=== PATIENT | female | born 1985 | race Two or more races ===

== ENCOUNTER → 2016-09-18 | Outpatient (REF) | payer BC | LOC: M LAB REF 13:30 | DX: D22.9 Melanocytic nevi, unspecified (principal) ==

== ENCOUNTER → 2018-03-19 | Outpatient (REF) | payer BC | LOC: M SFHCLERA 15:10 | DX: J02.9 Acute pharyngitis, unspecified (principal) ==

== ENCOUNTER 2023-10-16 06:10 | Day surgery (SDC) | payer BC ==
[~2023-10-16] VITALS: Ht 170.2 cm; Wt 80.7 kg
[~2023-10-16 06:10] MED LIST: LEXA1TAB PO; THERTAB52 PO; VITA-243 PO; VITA100093 PO
[2023-10-16 06:50] LABS: HEMATOCRIT 43.3 % (36.0-47.0); HEMOGLOBIN 14.3 g/dl (12.0-15.5); MEAN CORPUSCULAR VOLUME 90.8 fl (80.0-96.0); PLATELET COUNT, AUTOMATED 259 10^3/uL (150-450); RED BLOOD COUNT 4.77 10^6/uL (4.00-5.40); WHITE BLOOD COUNT 6.2 10^3/uL (4.0-10.0)
[2023-10-16] MEDS ORDERED: LR 1,000 ML IV SCH ×3 (07:05→10:10)
[2023-10-16] MEDS ORDERED: LIDOCAINE 2% 100MG/5ML SDV (FOR ANES.) As Ordered ONE (07:16)
[2023-10-16] MEDS ORDERED: fentaNYL 100 MCG/2 ML INJECTION As Ordered ONE (07:16)
[2023-10-16] MEDS ORDERED: ROCURONIUM BROMIDE 50MG/5ML VIAL As Ordered ONE (07:16)
[2023-10-16] MEDS ORDERED: propofoL 200 MG/20 ML VIAL As Ordered ONE (07:16)
[2023-10-16] MEDS ORDERED: MIDAZOLAM INJ 2MG/2ML VIAL As Ordered ONE (07:16)
[2023-10-16] MEDS ORDERED: ONDANSETRON 4MG 2ML VIAL As Ordered ONE (07:16)
[2023-10-16 07:17] LABS: BLOOD UREA NITROGEN 9 MG/DL (9-23); CALCIUM LEVEL 9.1 MG/DL (8.5-10.1); CARBON DIOXIDE LEVEL 27 MMOL/L (20-31); CHLORIDE LEVEL 105 MMOL/L (98-107); CREATININE FOR GFR 0.76 MG/DL (0.55-1.30); GLOMERULAR FILTRATION RATE > 60.0 (>60); GLUCOSE, FASTING 104 MG/DL (60-100); SODIUM LEVEL 137 MMOL/L (136-145)
[2023-10-16] MEDS ORDERED: dexmedeTOMIDine (4MCG/ML)200MCG/50ML BTL (PRECEDEX) As Ordered ONE (07:17)
[2023-10-16] MEDS ORDERED: ACETAMINOPHEN 1000MG 100ML IV BAG As Ordered ONE (07:21)
[2023-10-16] MEDS: SCOPOLAMINE 1MG TRANSDERMAL PATCH TOP ONE (07:34)
[2023-10-16] MEDS: ceFAZolin SOD 2 GM in IV 1 EA IV ONE (07:35)
[2023-10-16] MEDS ORDERED: fentaNYL 100 MCG/2 ML INJECTION IV PRN ×2 (08:00)
[2023-10-16] MEDS ORDERED: ONDANSETRON 4MG 2ML VIAL IV PRN (08:00)
[2023-10-16] MEDS ORDERED: HYDROMORPHONE HCL 0.5 MG/ 0.5 ML SYRINGE IV PRN ×2 (08:00)
[2023-10-16] MEDS ORDERED: oxyCODONE 5MG TAB PO PRN (08:00)
[2023-10-16] MEDS ORDERED: KETOROLAC 60MG 2ML VIAL As Ordered ONE (08:03)
[2023-10-16] MEDS ORDERED: SUGAMMADEX SODIUM 500 MG/5 ML VIAL (BRIDION) As Ordered ONE (08:03)
[2023-10-16] MEDS ORDERED: GLYCOPYRROLATE INJ 0.2 MG/ML 2 ML VIAL As Ordered ONE (08:22)
[2023-10-16] MEDS: FLUORESCEIN 10% (100MG/ML) 5ML VIAL As Ordered ONE (08:30)
[2023-10-16] MEDS ORDERED: HYDROmorphone HCL 2MG/ML 1ML VIAL As Ordered ONE (08:42)
[2023-10-16] MEDS ORDERED: PERC5TAB12 PO (09:36)
[2023-10-16] MEDS ORDERED: METOCLOPRAMIDE INJ 10MG/2ML VIAL IV PRN (09:40)
[2023-10-16] MEDS ORDERED: PERCOCET 5MG/325MG TAB PO PRN (10:10)
[2023-10-16] MEDS: ONDANSETRON 4MG 2ML VIAL IV PRN (12:04)
[2023-10-16 12:55] VITALS: BP 135/70; TEMP 96.9; O2SAT 99
[2023-10-16] MEDS ORDERED: IBUPROFEN 800 MG TAB PO SCH (17:00)
== END 2023-10-16 13:15 | disposition home or self-care (01) ==
LOC: M SDC 06:10
PROVIDERS: ATTEND Obstetrics & Gynecology
DX: N93.9 Abnormal uterine and vaginal bleeding, unspecified (principal); D25.1 Intramural leiomyoma of uterus; N84.0 Polyp of corpus uteri; N80.03 Adenomyosis of the uterus; N73.6 Female pelvic peritoneal adhesions (postinfective); J30.2 Other seasonal allergic rhinitis; M79.7 Fibromyalgia; F41.9 Anxiety disorder, unspecified; K21.9 Gastro-esophageal reflux disease without esophagitis; Z79.899 Other long term (current) drug therapy
CPT/HCPCS: 36415; 49329; 58571; 80048; 81025; 85027; 86850; 86900; 86901; 88307; J0131; J0665; J0690; J1100; J1170; J1885; J2250; J2405; J3010; S2900

== ENCOUNTER → 2025-03-16 | Outpatient (CLI) | payer BC ==
[~2025-03-16] MED LIST changes: +PERC5TAB12 PO
== END ==
LOC: M EKG 13:57
PROVIDERS: ATTEND Physician Assistant
DX: R00.2 Palpitations (principal); Z53.9 Procedure and treatment not carried out, unspecified reason